=== PATIENT | male | born 1955 | race Caucasian/White ===

== ENCOUNTER → 2024-09-12 | Outpatient (CLI) | payer MEDICARE, SELFPAY | END | disposition home or self-care (01) | LOC: COPL 11:14 | PROVIDERS: PCP Internal Medicine; Referring Provider Internal Medicine Gastroenterology; Visit Provider Internal Medicine Gastroenterology | DX: R10.84 Generalized abdominal pain (principal) | CPT/HCPCS: 80048; 80074; 80076; 82150; 82306; 82378; 82728; 84443; 85025; 85610; 85652; 85730; 86038; 86140; 87389 ==

== ENCOUNTER → 2024-09-20 | Outpatient (CLI) | payer MEDICARE, SELFPAY ==
[2024-09-20 15:22] LABS: Misc Send Out* See Sep Rpt
[2024-09-20 15:43] LABS: Basophils # (Auto) 0.1 Thou/mm3 (0.0-0.2); Basophils % (Auto) 1 % (0-2.5); Eosinophils # (Auto) 0.6 Thou/mm3 (0.0-0.5); Eosinophils % (Auto) 6 % (0-10); Hematocrit 54.3 % (41.0-53.0); Hemoglobin 18.3 g/dL (13.5-16.0); Immature Granulocytes % (Auto) 1 % (0-0); Immature Granulocytes Auto 0.05 Thou/mm3 (0.00-0.00); Lymphocytes # (Auto) 1.9 Thou/mm3 (1.0-4.8); Lymphocytes % (Auto) 19 % (10-50); Mean Corpuscular HGB Conc 33.7 g/dl (31.0-37.0); Mean Corpuscular Hemoglobin 31.8 pg (25.0-35.0); Mean Corpuscular Volume 94 fL (80-100); Monocytes # (Auto) 0.8 Thou/mm3 (0.0-0.8); Monocytes % (Auto) 8 % (0-12); Neutrophils # (Auto) 6.2 Thou/mm3 (1.8-7.7); Neutrophils % (Auto) 65 % (37-80); Nucleated Red Blood Cell % 0 /100 WBC (0); Platelet Count 265 Thou/mm3 (140-440); RDW Standard Deviation 47.4 fL (35.1-43.9); Red Blood Count 5.76 Miln/mm3 (4.50-5.90); White Blood Count 9.6 Thou/mm3 (3.8-10.6)
[2024-09-20 16:00] LABS: Partial Thromboplastin Time 26.6 Seconds (22.0-36.0); Prothrombin Time 11.2 Seconds (9.0-12.2)
[2024-09-20 16:09] LABS: Ferritin 98 ng/mL (10.5-307.3)
[2024-09-20 16:10] LABS: Alanine Aminotransferase 145 U/L (10-49); Albumin, Serum 4.3 gm/dL (3.4-4.8); Alkaline Phosphatase 201 U/L (46-116); Amylase 91 U/L (30-118); Anion Gap 4 (7-16); Aspartate Amino Transferase 39 U/L (0-34); BUN/Creatinine Ratio 12 Ratio (12-20); Bilirubin,Direct 0.2 mg/dL (0.0-0.3); Bilirubin,Total 0.5 mg/dL (0.3-1.2); Blood Urea Nitrogen 17 mg/dL (9-23); C-Reactive Protein 1.6 mg/dL (0.0-0.9); Calcium 9.2 mg/dL (8.3-10.6); Carbon Dioxide 27.3 mMol/L (20.0-31.0); Chloride 105 mMol/L (98-107); Creatinine (Component) 1.4 mg/dL (0.6-1.3); Glucose 104 mg/dL (74-106); Osmolality,Calculated 273 (275-295); Phosphorous 2.9 mg/dL (2.4-5.1); Potassium 4.6 mMol/L (3.4-5.1); Sodium 136 mMol/L (136-145); Thyroid Stimulating Hormone 1.02 uIU/mL (0.55-4.78); Total Protein 6.9 gm/dL (5.7-8.2); eGFR 54 See Note
[2024-09-20 16:50] LABS: Sed Rate (ESR) 66 mm/hr (0-20)
[2024-09-20 17:12] LABS: Carcinoembryonic Antigen 5.3 ng/mL (0.0-5.0); Hepatitis A Antibody IgM Non Reactive (Non React); Hepatitis B Core Antibody IgM Non Reactive (Non React); Hepatitis B Surface Antigen Non Reactive (Non React); Hepatitis C Antibody Non Reactive (Non React)
[2024-09-26 06:47] LABS: ANA Screen, IFA NEGATIVE (NEGATIVE); HIV Ag/Ab, 4th Gen NON-REACTIVE
== END | disposition home or self-care (01) ==
LOC: COPL 14:49
PROVIDERS: PCP Internal Medicine; Referring Provider Internal Medicine Gastroenterology; Visit Provider Internal Medicine Gastroenterology
DX: R10.84 Generalized abdominal pain (principal)
CPT/HCPCS: 36415; 80048; 80074; 80076; 81596; 82150; 82306; 82378; 82728; 84100; 84443; 85025; 85610; 85652; 85730; 86038; 86140; 87389

== ENCOUNTER → 2024-10-05 | Outpatient (CLI) | payer MEDICARE, SELFPAY ==
--- NOTE | 2024-10-05 11:30 | XR_ITS ---
Examination: CT abdomen with intravenous contrast CT pelvis with intravenous contrast 2-D coronal reconstructions 2-D sagittal reconstructions Date and time of exam:October 05, 2024 1223 hours INDICATIONS: Generalized abdominal pain beginning several weeks ago. CTDI: vol (mGy) 19.6 DLP: (mGycm) 799 Technique: Multiple axial sections of the abdomen and pelvis have been obtained. 64 slice high-resolution scanner used. 3 mm axial sections have been obtained, post intravenous injection 60 cc [id number] 2-D sagittal, coronal reconstructions obtained. Low dose protocols were performed. One or more of the following dose reduction techniques were used; automated exposure control, adjustment of the mA and/or KV according to patient size, use of iterative reconstruction technique. Findings: COPD with areas of airspace destruction Diffuse fatty infiltration throughout the liver Absent gallbladder Spleen is not enlarged No extra hepatic biliary tract dilatation No pancreatic or adrenal mass No renal or ureteral calculi, no hydronephrosis No bowel obstruction Prostatomegaly, AP dimension 4.8 cm Suspicious for 6 mm enhancing left prostate nodule, axial image 203 Bladder intact Moderate degenerative disc disease L5-S1 IMPRESSION: Diffuse fatty infiltration throughout the liver No CT findings of appendicitis bowel obstruction or diverticulitis Prostatomegaly, suspicious for 6 mm enhancing left prostate nodule, recommend correlation with PSA and consider transrectal prostate sonography follow-up
== END | disposition home or self-care (01) ==
LOC: SCAT 10-10 08:50
PROVIDERS: PCP Internal Medicine Gastroenterology; Referring Provider Internal Medicine Gastroenterology; Visit Provider Internal Medicine Gastroenterology
DX: K76.0 Fatty (change of) liver, not elsewhere classified (principal); N40.0 Benign prostatic hyperplasia without lower urinary tract symptoms
CPT/HCPCS: 74177; A4649; Q9967

== ENCOUNTER 2024-10-24 10:54 | Outpatient (RCR) | payer MEDICARE, SELFPAY | END 2024-11-08 23:59 | disposition home or self-care (01) | LOC: SCTC 10:54 | PROVIDERS: PCP Internal Medicine; Referring Provider Internal Medicine; Visit Provider Nurse Practitioner Family | DX: D75.1 Secondary polycythemia (principal); R97.20 Elevated prostate specific antigen [PSA]; F17.210 Nicotine dependence, cigarettes, uncomplicated | CPT/HCPCS: 99212; G0463 ==

== ENCOUNTER → 2025-03-29 | Outpatient (CLI) | payer MEDICARE, SELFPAY ==
[2025-03-29 08:16] LABS: Collection Type, Urine Clean Catch
[2025-03-29 08:32] LABS: Basophils # (Auto) 0.1 Thou/mm3 (0.0-0.2); Basophils % (Auto) 1 % (0-2.5); Eosinophils # (Auto) 0.2 Thou/mm3 (0.0-0.5); Eosinophils % (Auto) 3 % (0-10); Hematocrit 53.4 % (41.0-53.0); Hemoglobin 17.9 g/dL (13.5-16.0); Immature Granulocytes % (Auto) 1 % (0-0); Immature Granulocytes Auto 0.04 Thou/mm3 (0.00-0.00); Lymphocytes # (Auto) 1.3 Thou/mm3 (1.0-4.8); Lymphocytes % (Auto) 18 % (10-50); Mean Corpuscular HGB Conc 33.5 g/dl (31.0-37.0); Mean Corpuscular Hemoglobin 31.7 pg (25.0-35.0); Mean Corpuscular Volume 95 fL (80-100); Monocytes # (Auto) 0.6 Thou/mm3 (0.0-0.8); Monocytes % (Auto) 9 % (0-12); Neutrophils % (Auto) 70 % (37-80); Nucleated Red Blood Cell % 0 /100 WBC (0); Platelet Count 211 Thou/mm3 (140-440); RDW Standard Deviation 50.5 fL (35.1-43.9); Red Blood Count 5.64 Miln/mm3 (4.50-5.90); White Blood Count 7.1 Thou/mm3 (3.8-10.6)
[2025-03-29 08:44] LABS: Glucose Estimated Average 108 mg/dL (80-131); Hemoglobin A1C 5.4 % Hgb (4.8-6.0)
[2025-03-29 08:51] LABS: Bilirubin,Urine Negative (Negative); Blood,Urine Negative (Negative); Clarity,Urine Clear (Clear/Hazy); Color,Urine Lt-Yellow (Lt Yel-Yel); Glucose, Urine Negative (Negative); Ketones,Urine Negative (Negative); Leukocyte Esterase,Urine Positive (Negative); Nitrite,Urine Negative (Negative); Protein,Urine Negative (Neg - Trace); RBC,Urine 3 /hpf (0-3); Specific Gravity,Urine 1.016 (1.001-1.035); Squamous Epithelial Cell,Urine < 1 /hpf (0-5); Urobilinogen,Urine Negative mg/dL (0.0-1.0); WBC,Urine 7 /hpf (0-5)
[2025-03-29 08:52] LABS: Prostate Specific Antigen 9.39 ng/mL (0-4.00)
[2025-03-29 08:56] LABS: Alanine Aminotransferase 16 U/L (10-49); Albumin/Globulin Ratio 1.6 (1.2-2.2); Alkaline Phosphatase 102 U/L (46-116); Amylase 43 U/L (30-118); Anion Gap 7 (7-16); Aspartate Amino Transferase 16 U/L (0-34); BUN/Creatinine Ratio 7 Ratio (12-20); Bilirubin,Total 0.5 mg/dL (0.3-1.2); Blood Urea Nitrogen 10 mg/dL (9-23); Calcium 8.8 mg/dL (8.3-10.6); Calcium (Corrected) 8.8 mg/dL (8.5-10.1); Carbon Dioxide 27.7 mMol/L (20.0-31.0); Cardiac Risk Estimate 5.2 RATIO (4.0-6.7); Chloride 107 mMol/L (98-107); Cholesterol 196 mg/dL (132-200); Creatinine (Component) 1.4 mg/dL (0.6-1.3); Globulin 2.5 gm/dL (2.3-3.5); Glucose 99 mg/dL (74-106); HDL Cholesterol 38 mg/dL (40-60); LDL Cholesterol,Calculated 128 mg/dL (0-130); Lipase 31 U/L (12-53); Osmolality,Calculated 282 (275-295); Potassium 4.4 mMol/L (3.4-5.1); Sodium 142 mMol/L (136-145); Thyroid Stimulating Hormone 13.28 uIU/mL (0.55-4.78); Total Protein 6.5 gm/dL (5.7-8.2); Triglycerides 148 mg/dL (30-150); Uric Acid 7.9 mg/dL (3.7-9.2); eGFR 54 See Note
[2025-03-29 09:00] LABS: Vitamin B12 339 pg/mL (211-911); Vitamin D 25 Hydroxy Total 95.8 ng/mL (7.3-40.2)
== END | disposition home or self-care (01) ==
LOC: COPL 07:44
PROVIDERS: PCP Internal Medicine; Referring Provider Internal Medicine; Visit Provider Internal Medicine
DX: I10 Essential (primary) hypertension (principal); E78.5 Hyperlipidemia, unspecified; R73.01 Impaired fasting glucose; E03.9 Hypothyroidism, unspecified; R97.20 Elevated prostate specific antigen [PSA]; N17.9 Acute kidney failure, unspecified
CPT/HCPCS: 36415; 80053; 80061; 81001; 82150; 82306; 82607; 83036; 83690; 84153; 84443; 84550; 85025

== ENCOUNTER → 2025-06-14 | Outpatient (CLI) | payer MEDICARE, SELFPAY ==
[2025-06-26 06:37] LABS: Testosterone, Free,Dialysis 136.9 pg/mL (30.0-135.0); Testosterone, Total, Dialysis 752 ng/dL (250-1100)
== END | disposition home or self-care (01) ==
LOC: COPL 16:33
PROVIDERS: PCP Internal Medicine; Referring Provider Internal Medicine; Visit Provider Internal Medicine
DX: E29.1 Testicular hypofunction (principal)
CPT/HCPCS: 36415; 84402; 84403